=== PATIENT | male | born 1965 | race Hispanic/Latino ===

== ENCOUNTER 2018-09-29 12:19 | Inpatient (IN) | payer SELFPAY ==
[~2018-09-29] VITALS: Ht 172.7 cm; Wt 62.4 kg
[2018-09-29] MEDS ORDERED: MECLIZINE HCL 25 MG TABLET ONE (12:44)
[2018-09-29 13:00] LABS: BASOPHILS % (AUTO) 0.5 % (0.0-5.0); EOSINOPHILS % (AUTO) 0.4 % (0.0-8.0); HEMATOCRIT 45.4 % (42-54); LYMPHOCYTES % (AUTO) 8.6 % (21.0-51.0); MEAN CORPUSCULAR HEMOGLOBIN 31.4 pg (27.0-33.0); MEAN CORPUSCULAR VOLUME 92.4 fL (79-99); MONOCYTES % (AUTO) 9.5 % (3.0-13.0); PLATELET COUNT (AUTO) 431 K/uL (130-400); RED BLOOD CELL COUNT(AUTO) 4.92 MIL/uL (4.50-6.20); RED CELL DISTRIBUTION WIDTH 13.6 % (11.0-15.5); WHITE BLOOD COUNT (AUTO) 16.5 K/uL (4.8-10.8)
[2018-09-29 13:30] LABS: ALBUMIN 2.9 g/dL (3.5-5.0); BILIRUBIN,TOTAL 0.5 mg/dL (0.2-1.0); CREATININE 0.8 mg/dL (0.5-1.5); POTASSIUM 5.4 mmol/L (3.5-5.1); TOTAL PROTEIN, SERUM 7.7 g/dL (6.0-8.3)
[2018-09-29] MEDS ORDERED: THIAMINE HCL 100 MG/ML 2ML VIAL ONE (13:41)
[2018-09-29 13:54] LABS: APPEARANCE,URINE Clear (CLEAR); BILIRUBIN,URINE Negative (NEGATIVE); COLOR,URINE Yellow (YELLOW); GLUCOSE, URINE (UA) >=1000 mg/dL (NEGATIVE); KETONES,URINE 40 mg/dL (NEGATIVE); LEUKOCYTE ESTERASE ,URINE Negative (NEGATIVE); NITRATE,URINE Negative (NEGATIVE); OCCULT BLOOD,URINE Negative (NEGATIVE); PROTEIN,URINE Trace mg/dL (NEGATIVE)
[2018-09-29 14:01] LABS: AMPHET/METH SCREEN,URINE NEGATIVE (NEGATIVE); BARBITURATE SCREEN, URINE NEGATIVE (NEGATIVE); BENZODIAZEPINES SCREEN,URINE NEGATIVE (NEGATIVE); CANNABINOID SCREEN,URINE NEGATIVE (NEGATIVE); COCAINE SCREEN,URINE NEGATIVE (NEGATIVE); OPIATE SCREEN,URINE NEGATIVE (NEGATIVE); PHENCYCLIDINE SCREEN,URINE NEGATIVE (NEGATIVE)
[2018-09-29 14:07] LABS: BACTERIA,URINE Rare /HPF (None Seen); RBC,URINE 0-1 /HPF (0-1); SQUAMOUS EPITHELIAL CELL,UR Rare /HPF (0-2)
[2018-09-29] MEDS: SODIUM CHLORIDE 0.9% 1000ML 1,000 ML IV SCH ×2 (15:43→21:26)
[2018-09-29] MEDS ORDERED: DIAZEPAM 5 MG TABLET ONE (15:45)
[2018-09-29] MEDS ORDERED: LACTULOSE 20 GM/30 ML UDCUP PO PRN (15:45)
[2018-09-29] MEDS ORDERED: ONDANSETRON HCL 4 MG/2 ML VIAL IV PRN (15:45)
[2018-09-29] MEDS ORDERED: CHLORDIAZEPOXIDE HCL 25 MG CAP PO PRN ×2 (15:45→22:15)
[2018-09-29] MEDS ORDERED: HYDRALAZINE HCL 20 MG/ML VIAL IV PRN (15:45)
[2018-09-29] MEDS ORDERED: ZOLPIDEM TARTRATE 5 MG TAB PO PRN (15:45)
[2018-09-29 16:13] LABS: HEMOGLOBIN A1C 7.5 % (4.0-6.0)
[2018-09-29 16:21] LABS: ALCOHOL, BLOOD < 3 mg/dL (0-10); PHOSPHORUS 3.6 mg/dL (2.5-4.9); THYROID STIMULATING HORMONE 0.69 uIU/mL (0.36-3.74)
[2018-09-29] MEDS ORDERED: HYDRALAZINE HCL 20 MG/ML VIAL ONE (16:40)
[2018-09-29 17:07] LABS: CREATININE 0.7 mg/dL (0.5-1.5); POTASSIUM 4.3 mmol/L (3.5-5.1)
[2018-09-29] MEDS ORDERED: CHLORDIAZEPOXIDE HCL 25 MG CAP ONE ×2 (17:08→19:09)
[2018-09-29] MEDS: BACLOFEN 10 MG TABLET PO SCH ×2 (17:30→21:48)
[2018-09-29] MEDS: IBUPROFEN 800 MG TAB PO SCH (17:30)
[2018-09-29 18:04] LABS: AMPHET/METH SCREEN,URINE NEGATIVE (NEGATIVE); BARBITURATE SCREEN, URINE NEGATIVE (NEGATIVE); BENZODIAZEPINES SCREEN,URINE NEGATIVE (NEGATIVE); CANNABINOID SCREEN,URINE NEGATIVE (NEGATIVE); COCAINE SCREEN,URINE NEGATIVE (NEGATIVE); OPIATE SCREEN,URINE NEGATIVE (NEGATIVE); PHENCYCLIDINE SCREEN,URINE NEGATIVE (NEGATIVE)
[2018-09-29] MEDS ORDERED: LIDOCAINE 5% TOPICAL PATCH TP ONE ×2 (18:30→18:53)
[2018-09-29] MEDS ORDERED: BACLOFEN 10 MG TABLET PO ONE (18:52)
[2018-09-29 20:10] VITALS: BP 175/86
[2018-09-29] MEDS: INSULIN HUMULIN R 100 UNIT/ML 3ML SQ SCH (21:44)
[2018-09-29] MEDS: FAMOTIDINE 20MG TAB 20 MG TAB PO SCH (21:48)
[2018-09-29] MEDS ORDERED: LORAZEPAM 2 MG/ML 1 ML VIAL IVP PRN (22:15)
[2018-09-29 23:05] VITALS: BP 134/75
[2018-09-30] MEDS: IBUPROFEN 800 MG TAB PO SCH ×3 (00:07→17:52)
[2018-09-30] MEDS: SODIUM CHLORIDE 0.9% 1000ML 1,000 ML IV SCH ×4 (00:44→21:04)
[2018-09-30 04:10] VITALS: BP 128/74
[2018-09-30] MEDS: INSULIN HUMULIN R 100 UNIT/ML 3ML SQ SCH ×4 (06:20→21:18)
[2018-09-30 07:00] VITALS: BP 156/77
[2018-09-30] MEDS ORDERED: MULTIVITAMIN TABLET PO SCH (09:00)
[2018-09-30] MEDS ORDERED: FOLIC ACID 1 MG TABLET PO SCH (09:00)
[2018-09-30] MEDS: FAMOTIDINE 20MG TAB 20 MG TAB PO SCH ×2 (10:15→21:17)
[2018-09-30] MEDS: MULTIVITAMIN TABLET PO SCH (10:15)
[2018-09-30] MEDS: BACLOFEN 10 MG TABLET PO SCH ×3 (10:15→21:17)
[2018-09-30] MEDS: FOLIC ACID 1 MG TABLET PO SCH (10:16)
[2018-09-30] MEDS: THIAMINE HCL 100 MG/ML 2ML VIAL IM SCH (10:16)
[2018-09-30] MEDS: ENOXAPARIN SODIUM 40 MG/0.4 ML SYRINGE SQ SCH (10:16)
[2018-09-30 11:00] VITALS: BP 140/65
[2018-09-30 16:00] VITALS: BP 141/73
--- NOTE | 2018-09-30 16:00 | NUR ---
IA ATTEMPTED SAW PATIENT THIS AM. IN RESTOROOM, WENT BACK TO ROOM, NOT APPROPRIATE TIME FOR IA, WILL FOLLOW
[2018-09-30 17:57] LABS: HEMATOCRIT 38.3 % (42-54); MEAN CORPUSCULAR HEMOGLOBIN 31.6 pg (27.0-33.0); MEAN CORPUSCULAR HGB CONC 34.1 g/dL (32.0-36.0); MEAN CORPUSCULAR VOLUME 92.7 fL (79-99); PLATELET COUNT (AUTO) 295 K/uL (130-400); RED BLOOD CELL COUNT(AUTO) 4.13 MIL/uL (4.50-6.20); RED CELL DISTRIBUTION WIDTH 13.6 % (11.0-15.5); WHITE BLOOD COUNT (AUTO) 14.7 K/uL (4.8-10.8)
[2018-09-30 18:14] LABS: CREATININE 0.7 mg/dL (0.5-1.5)
[2018-09-30 18:18] LABS: BILIRUBIN,TOTAL 0.5 mg/dL (0.2-1.0); TOTAL PROTEIN, SERUM 5.9 g/dL (6.0-8.3)
[2018-09-30 19:00] VITALS: BP 150/71
[2018-10-01] VITALS: BP 136/68
[2018-10-01] MEDS: IBUPROFEN 800 MG TAB PO SCH ×3 (01:59→17:37)
[2018-10-01] MEDS: SODIUM CHLORIDE 0.9% 1000ML 1,000 ML IV SCH (02:44)
[2018-10-01 04:00] VITALS: BP 136/69
[2018-10-01 05:25] LABS: HEMATOCRIT 34.3 % (42-54); MEAN CORPUSCULAR HEMOGLOBIN 31.7 pg (27.0-33.0); MEAN CORPUSCULAR HGB CONC 34.4 g/dL (32.0-36.0); MEAN CORPUSCULAR VOLUME 92.3 fL (79-99); PLATELET COUNT (AUTO) 353 K/uL (130-400); RED BLOOD CELL COUNT(AUTO) 3.71 MIL/uL (4.50-6.20); RED CELL DISTRIBUTION WIDTH 13.4 % (11.0-15.5)
[2018-10-01 05:43] LABS: CREATININE 0.7 mg/dL (0.5-1.5); MAGNESIUM 2.1 mg/dL (1.80-2.40); PHOSPHORUS 4.3 mg/dL (2.5-4.9); POTASSIUM 3.9 mmol/L (3.5-5.1)
[2018-10-01 05:59] LABS: CRP QUANTITATIVE 211.1 mg/L (0.00-9.0)
[2018-10-01] MEDS: INSULIN HUMULIN R 100 UNIT/ML 3ML SQ SCH ×3 (06:26→16:30)
[2018-10-01 07:00] VITALS: BP 153/73
[2018-10-01] MEDS: FOLIC ACID 1 MG TABLET PO SCH (08:16)
[2018-10-01] MEDS: MULTIVITAMIN TABLET PO SCH (08:16)
[2018-10-01] MEDS: FAMOTIDINE 20MG TAB 20 MG TAB PO SCH (08:16)
[2018-10-01] MEDS: BACLOFEN 10 MG TABLET PO SCH ×2 (08:16→14:24)
[2018-10-01] MEDS: THIAMINE HCL 100 MG/ML 2ML VIAL IM SCH (08:16)
[2018-10-01] MEDS: ENOXAPARIN SODIUM 40 MG/0.4 ML SYRINGE SQ SCH (08:18)
[2018-10-01 11:00] VITALS: BP 142/71
[2018-10-01] MEDS ORDERED: BACL10TA PO (15:16)
[2018-10-01 16:00] VITALS: BP 149/69
--- NOTE | 2018-10-01 18:40 | NUR ---
DISCHARGE PATIENT/SPOUSE GIVEN DISCHARGE INSTRUCTIONS VIA TEACH BACK. RX GIVEN FOR BACLOFEN 10MG TID FOR MUSCLE SPAMS. PATIENT TO MAKE FOLLOW UP APPOINTMENT WITH [facility] ON WEDNESDAY. 18G PIV TO LFA REMOVED, TIP INTACT. PATIENT STABLE AT THIS TIME. SPOUSE AND MOTHER AT BEDSIDE TO TRANSFER PATIENT HOME.
== END 2018-10-01 19:00 | disposition home or self-care (01) | DRG 644 ==
LOC: EDH 12:19 → EDHIP 12:20 → 3CH 20:22
PROVIDERS: ADMIT Internal Medicine; ATTEND Internal Medicine
DX: E22.2 Syndrome of inappropriate secretion of antidiuretic hormone (principal); F10.239 Alcohol dependence with withdrawal, unspecified; M43.6 Torticollis; E11.9 Type 2 diabetes mellitus without complications; E87.5 Hyperkalemia; I10 Essential (primary) hypertension
CPT/HCPCS: 36415; 70450; 72040; 80048; 80053; 80305; 81001; 82948; 83036; 83735; 84100; 84443; 85025; 85027; 86140; 87040; 87077; 87186; 97039; G0378; G0480; J0360; J1650; J1815; J2060; J3411

== ENCOUNTER → 2019-04-11 | Outpatient (CLI) | payer OTHER ==
[~2019-04-11] MED LIST: BACL10TA PO
== END | disposition home or self-care (01) ==
LOC: RAH 15:54
PROVIDERS: ATTEND Internal Medicine
DX: G06.1 Intraspinal abscess and granuloma (principal)
CPT/HCPCS: 72040

== ENCOUNTER 2022-07-30 10:05 | Observation (INO) | payer MEDICAID, OTHER ==
[~2022-07-30] VITALS: Ht 160 cm; Wt 64.5 kg
[2022-07-30 12:00] LABS: BASOPHILS % (AUTO) 0.3 % (0.0-5.0); HEMATOCRIT 39.1 % (42-54); LYMPHOCYTES % (AUTO) 29.8 % (21.0-51.0); MEAN CORPUSCULAR HEMOGLOBIN 31.9 pg (27.0-33.0); MEAN CORPUSCULAR HGB CONC 36.8 g/dL (32.0-36.0); MEAN CORPUSCULAR VOLUME 86.5 fL (79-99); NEUTROPHILS % (AUTO) 47.6 % (40.0-77.0); PLATELET COUNT (AUTO) 83 K/uL (130-400); RED BLOOD CELL COUNT(AUTO) 4.52 MIL/uL (4.50-6.20); RED CELL DISTRIBUTION WIDTH 11.5 % (11.0-15.5); WHITE BLOOD COUNT (AUTO) 3.3 K/uL (4.8-10.8)
[2022-07-30 12:15] LABS: ALBUMIN 3.6 g/dL (3.5-5.0); CREATININE 0.5 mg/dL (0.5-1.5); POTASSIUM 4.2 mmol/L (3.5-5.1); TOTAL PROTEIN, SERUM 6.6 g/dL (6.0-8.3)
[2022-07-30 12:25] LABS: APPEARANCE,URINE TURBID (CLEAR); BILIRUBIN,URINE NEGATIVE (NEGATIVE); COLOR,URINE YELLOW (YELLOW); GLUCOSE, URINE (UA) NEGATIVE (NEGATIVE); KETONES,URINE NEGATIVE (NEGATIVE); LEUKOCYTE ESTERASE ,URINE SMALL Leu/uL (NEGATIVE); NITRATE,URINE NEGATIVE (NEGATIVE); OCCULT BLOOD,URINE NEGATIVE (NEGATIVE); PROTEIN,URINE 30 mg/dL (NEGATIVE); UROBILINOGEN,URINE 0.2 mg/dL (0.2-1.0)
[2022-07-30 12:32] LABS: BACTERIA,URINE Few /HPF (None Seen); RBC,URINE 0-1 /HPF (0-1); SQUAMOUS EPITHELIAL CELL,UR Rare /HPF (0-2); WBC,URINE 0-1 /HPF (0-1)
[2022-07-30 12:33] LABS: TRIPLE PHOSPHATE CRYSTAL,UR Few /LPF (None Seen)
[2022-07-30 12:41] LABS: BAND NEUTROPHILS % (MANUAL) 4 % (0-2); LYMPHOCYTES % (MANUAL) 28 % (22-44); MAN.DIFF COMMENT-IMPRESSION MANUAL DIFFERENTIAL; MONOCYTES % (MANUAL) 17 % (2-9); PLATELET MORPHOLOGY COMMENT DECREASED; REACTIVE LYMPHOCYTES 8 % (0-0); SEGMENTED NEUTROPHILS % 43 % (40-70)
[2022-07-30] MEDS ORDERED: SODIUM CHLORIDE 3% 500 ML IV SCH (14:30)
[2022-07-30 18:42] LABS: CREATININE 0.5 mg/dL (0.5-1.5); POTASSIUM 4.2 mmol/L (3.5-5.1)
[2022-07-31 00:53] VITALS: BP 148/72
[2022-07-31 04:15] VITALS: BP 115/79
[2022-07-31 04:45] LABS: HEMATOCRIT 40.3 % (42-54); LYMPHOCYTES % (AUTO) 37.4 % (21.0-51.0); MEAN CORPUSCULAR HEMOGLOBIN 31.8 pg (27.0-33.0); MEAN CORPUSCULAR HGB CONC 35.7 g/dL (32.0-36.0); MONOCYTES % (AUTO) 20.4 % (3.0-13.0); NEUTROPHILS % (AUTO) 41.9 % (40.0-77.0); PLATELET COUNT (AUTO) 89 K/uL (130-400); RED BLOOD CELL COUNT(AUTO) 4.53 MIL/uL (4.50-6.20); RED CELL DISTRIBUTION WIDTH 11.9 % (11.0-15.5); WHITE BLOOD COUNT (AUTO) 3.3 K/uL (4.8-10.8)
[2022-07-31 04:57] LABS: ALBUMIN 3.3 g/dL (3.5-5.0); CREATININE 0.5 mg/dL (0.5-1.5); TOTAL PROTEIN, SERUM 6.3 g/dL (6.0-8.3)
[2022-07-31 08:27] VITALS: BP 134/91
[2022-07-31 11:27] VITALS: BP 125/66
== END 2022-07-31 14:55 | disposition home or self-care (01) ==
LOC: EDH 10:05 → EDHIP 10:06 → INTOOBSV 10:06 → 2AH 07-31 00:32
PROVIDERS: ADMIT Internal Medicine; ATTEND Internal Medicine
DX: U07.1 COVID-19 (principal); E87.1 Hypo-osmolality and hyponatremia; I12.9 Hypertensive chronic kidney disease with stage 1 through stage 4 chronic kidney disease, or unspecified chronic kidney disease; N18.9 Chronic kidney disease, unspecified; E11.22 Type 2 diabetes mellitus with diabetic chronic kidney disease; E86.0 Dehydration; E78.00 Pure hypercholesterolemia, unspecified; F32.9 Major depressive disorder, single episode, unspecified; N31.9 Neuromuscular dysfunction of bladder, unspecified; Z79.899 Other long term (current) drug therapy; Z98.890 Other specified postprocedural states
CPT/HCPCS: 96360; 96361 ×3; 99284; 80053 ×2; 85025 ×2; 87077; 87088; 87186; 81001; 36415 ×2; 87635; G0378 ×25; C9803; J3490; 80048